=== PATIENT | female | born 1980 | race Caucasian/White ===

== ENCOUNTER 2017-01-17 17:46 | Emergency (ER) | payer OTHER ==
[~2017-01-17] VITALS: Ht 160 cm; Wt 54.5 kg
[2017-01-17 17:53] VITALS: TEMP 36.5; Ht 160 cm; Wt 54.5 kg
[2017-01-17] MEDS ORDERED: METOCLOPRAMIDE HCL INJ 5 MG/ML 2 ML VIAL IV STA (18:45)
[2017-01-17] MEDS ORDERED: LACTULOSE SYRUP 20 GM/30 ML UDC PO STA (18:45)
[2017-01-17] MEDS ORDERED: MILK AND MOLASSES ENEMA PR STA (18:45)
--- NOTE | 2017-01-17 19:08 | EMERGENCY ROOM VISIT NOTE ---
History Report prepared by Lorrieibbonita: Micah Lauren Under the Supervision of: Dr. Glen Baum M.D. First contact with patient: 18:40 Chief Complaint: RECTAL PAIN Stated Complaint: PAIN, CONSTIPATED Nursing Triage Summary: pt reports constipation with no BM X 1wk, pt reprots started with rectal pain this AM has take a suppostiory with no help History of Present Illness The patient is a 36 year old white female with a past medical history of endometriosis, laparoscopy who presents to the ED with a cc of constant constipation beginning 3-7 days ago. Positive passing gas, abdominal cramping, rectal pain. Negative prior similar experience. The patient states that she was taking Magnesium at 1500 and reports that she experienced nausea and vomiting. Source of History: patient Onset: 3-7 days ago Position: other (global) Symptom Intensity: 11/24 Quality: other (global) Timing: constant Associated Symptoms: + nausea, + vomiting, + abdominal pain Review of Systems See HPI for pertinent positives and negatives. A total of ten systems were reviewed and were otherwise negative. Past Medical & Surgical Medical Problems: (1) Endometriosis Family History Patient reports no known family medical history. Social History Smoking Status: Never Smoker Occupation Status: employed Current/Historical Medications Scheduled Calcium Carbonate (Calcium), 1 TAB PO DAILY Medroxyprogesterone Acetate (C (Depo-Provera Contraceptiv), 150 MG IM UD Allergies Coded Allergies: Prochlorperazine (Verified Allergy, Severe, Seizure, 01/17/17) Tramadol (Verified Allergy, Severe, Hallucinations, 01/17/17) Physical Exam Vital Signs Date Time Temp Pulse Resp B/P (MAP) Pulse Ox O2 Delivery O2 Flow Rate FiO2 01/17/17 20:15 81 18 98/61 95 Room Air 01/17/17 19:17 74 18 128/73 98 Room Air 01/17/17 17:53 36.5 115 20 101/59 98 Room Air Physical Exam GENERAL: Awake, alert, well-appearing, NAD HENT: Normocephalic, atraumatic. EYES: Normal conjunctiva. Sclera non-icteric. NECK: Supple. No nuchal rigidity. FROM. RESPIRATORY: CTAB, no rhonchi, wheezing, crackles CARDIAC: RRR, no MRG ABDOMEN: Soft, ND, BS+, mild diffuse abdominal pain MSK: No chest wall TTP, no LE edema NEURO: GCS 15, CN 2-12 intact, moves all 4s on command SKIN: No rash or jaundice noted. Medical Decision & Procedures ER Provider Diagnostic Interpretation: X-ray: Per my interpretation, radiologist review. PA CHEST WITH ABDOMINAL SERIES CLINICAL HISTORY: Generalized abdominal pain. FINDINGS: A PA chest radiograph is obtained. No prior studies are available for comparison at the time of dictation. The examination is degraded by patient rotation. The cardiomediastinal silhouette is unremarkable. The lungs and pleural spaces are clear. No pneumothorax is seen. The bony thorax is grossly intact. Supine and decubitus abdominal radiographs are correlated with fluoroscopic upper GI series dated 04/04/2015. There is a nonobstructed abdominal bowel gas pattern. No evidence of intraperitoneal free air is seen on the decubitus view. There are no abnormal abdominal calcifications. Phleboliths are seen in the hemipelvis. The lumbosacral spine and bony pelvis appear intact. IMPRESSION: 1. No active disease in the chest. 2. Nonobstructed abdominal bowel gas pattern. Electronically signed by: Silviano Figueroa M.D. 01/17/2017 7:38 PM Dictated Date/Time: 01/17/2017 7:37 PM Laboratory Results 01/17/17 19:02 Red Blood Count 4.19, Mean Corpuscular Volume 90.5, Mean Corpuscular Hemoglobin 30.5, Mean Corpuscular Hemoglobin Concent 33.8, Mean Platelet Volume 9.8, Neutrophils (%) (Auto) 81.8, Lymphocytes (%) (Auto) 13.8, Monocytes (%) (Auto) 4.0, Eosinophils (%) (Auto) 0.0, Basophils (%) (Auto) 0.2, Neutrophils # (Auto) 8.93, Lymphocytes # (Auto) 1.51, Monocytes # (Auto) 0.44, Eosinophils # (Auto) 0.00, Basophils # (Auto) 0.02 01/17/17 19:02 Test 01/17/17 19:02 White Blood Count 10.92 K/uL (4.8-10.8) Red Blood Count 4.19 M/uL (4.2-5.4) Hemoglobin 12.8 g/dL (12.0-16.0) Hematocrit 37.9 % (37-47) Mean Corpuscular Volume 90.5 fL (80-100) Mean Corpuscular Hemoglobin 30.5 pg (25-34) Mean Corpuscular Hemoglobin Concent 33.8 g/dl (32-36) Platelet Count 257 K/uL (130-400) Mean Platelet Volume 9.8 fL (7.4-10.4) Neutrophils (%) (Auto) 81.8 % Lymphocytes (%) (Auto) 13.8 % Monocytes (%) (Auto) 4.0 % Eosinophils (%) (Auto) 0.0 % Basophils (%) (Auto) 0.2 % Neutrophils # (Auto) 8.93 K/uL (1.4-6.5) Lymphocytes # (Auto) 1.51 K/uL (1.2-3.4) Monocytes # (Auto) 0.44 K/uL (0.11-0.59) Eosinophils # (Auto) 0.00 K/uL (0-0.5) Basophils # (Auto) 0.02 K/uL (0-0.2) RDW Standard Deviation 39.6 fL (36.4-46.3) RDW Coefficient of Variation 12.0 % (11.5-14.5) Immature Granulocyte % (Auto) 0.2 % Immature Granulocyte # (Auto) 0.02 K/uL (0.00-0.02) Anion Gap 11.0 mmol/L (3-11) Est Creatinine Clear Calc Drug Dose 96.0 ml/min Estimated GFR () 131.1 Estimated GFR (Non- 113.1 BUN/Creatinine Ratio 17.8 (10-20) Calcium Level 9.2 mg/dl (8.5-10.1) Total Bilirubin 0.4 mg/dl (0.2-1) Direct Bilirubin 0.2 mg/dl (0-0.2) Aspartate Amino Transf (AST/SGOT) 17 U/L (15-37) Alanine Aminotransferase (ALT/SGPT) 8 U/L (12-78) Alkaline Phosphatase 70 U/L (45-117) Total Protein 7.7 gm/dl (6.4-8.2) Albumin 4.6 gm/dl (3.4-5.0) Lipase 206 U/L (73-393) Laboratory results reviewed by me Medications Administered Medications (Trade) Dose Ordered Sig/Francia Route Start Time Stop Time Status Last Admin Dose Admin Metoclopramide HCl (Reglan Inj) 10 mg NOW STAT IV 01/17/17 18:45 01/17/17 18:47 DC 01/17/17 19:10 10 MG Lactulose (Chronulac Syrup) 30 gm NOW STAT PO 01/17/17 18:45 01/17/17 18:47 DC 01/17/17 19:10 30 GM Miscellaneous Medication (Milk And Molasses Enema) 1 ea ONE STAT [place] 01/17/17 18:45 01/17/17 18:47 DC 01/17/17 18:45 1 EA ED Course 1855: The patient was evaluated in room C11B. A complete history and physical exam was performed. 2034: I reevaluated the patient. Discussed results and discharge instructions: She verbalized understanding and agreement. The patient is ready for discharge. Medical Decision Triage Nursing notes reviewed. The patient is a 36 year old white female with a past medical history of endometriosis, laparoscopy who presents to the ED with a cc of constant constipation beginning 3-7 days ago. The patient's presentation and history were concerning for etiologies such as appendicitis, diverticulitis, PUD, biliary pathology, UTI, pancreatitis, obstruction, mesenteric ischemia, aortic pathology, infections, inflammatory bowel disease, renal colic, as well as others were entertained. Patient was seen and evaluated the bedside. Patient was complaining of some abdominal and rectal pain been ongoing today. Patient states she is unsure as to whether not she's had a bowel movement in the last 3-7 days. Patient states she did pass gas this morning. Patient denies any recent trauma or procedures to the area. Patient denies any bleeding. On exam patient appears mildly uncomfortable does have some mild diffuse abdominal discomfort. Patient did have blood work completed along with a plain film. Patient's blood work fairly unremarkable. White blood cell count within normal limits. Patient normal LFTs and lipase. Patient's plain films showed a nonobstructive bowel gas pattern. Patient did receive lactulose, Reglan, and an enema. Patient did have a large bowel movement and felt much improved. Patient was given instructions on at home remedies. Patient was told to increase leafy greens heart rate her diet. Patient was also instructed to take a docusate/senna. Patient told she had constipation she should consider an osmotic laxative like mag citrate and lactulose and/or a suppository. Patient was agreeable to plan of care. Patient is soft abdomen. Patient was able tolerate by mouth. Patient was deemed suitable for outpatient follow-up and discharge. Patient was given strict follow-up, discharge, and return precautions. All questions were answered. Patient was deemed suitable for outpatient follow-up at this time. Patient agreed with the plan of care and was safely discharged home. Medication Reconcilliation Current Medication List: was personally reviewed by me Blood Pressure Screening Patient's blood pressure: Normal blood pressure Impression Primary Impression: Constipation Scribe Attestation The scribe's documentation has been prepared under my direction and personally reviewed by me in its entirety. I confirm that the note above accurately reflects all work, treatment, procedures, and medical decision making performed by me. Departure Information Dispostion Home / Self-Care Referrals No Doctor, Assigned (PCP) Patient Instructions Diet High Fiber Dc, ED Constipation, My [facility] Additional Instructions Please return to the emergency department if you have worsening or recurrent symptoms not amenable to at-home treatment. Please call for a follow-up appointment with her primary care physician. Please take your medications as prescribed. If you have other concerns and/or complaints please feel free to also call your primary care physician's office or return the ED for further evaluation, management, and treatment. Increase your fluid hydration. Avoid things like alcohol and caffeinated beverages. Also increase the leafy greens and fiber in her diet. Please consider taking a docusate and senna. If you have constipation even after employing these remedies consider taking a osmotic laxative like lactulose for magnesium citrate and/or consider a suppository. You may take 600 mg Ibuprofen every 6 hours as needed for pain with food for no more than 2 consecutive days. You may take tylenol 1000 mg every 6 hours as needed for pain. You may take motrin and tylenol separately or at the same time. Take your medications as prescribed. You have been examined and treated today on an emergency basis only. This is not a substitute for, or an effort to provide, complete comprehensive medical care. It is impossible to recognize and treat all injuries or illnesses in a single emergency department visit. It is therefore important that you follow up closely with [facility], your PCP, and/or your specialist(s). Call as soon as possible for an appointment. Thank you for your time and consideration. I look forward to speaking with you again soon. Please don't hesitate to call us if you have any questions. Problem Qualifiers Primary Impression: Constipation Constipation type: unspecified constipation type Qualified Codes: K59.00 - Constipation, unspecified
[2017-01-17 19:29] LABS: BASO % 0.2 %; BASO ABS # 0.02 K/uL (0-0.2); COMPLETE YES; HEMATOCRIT 37.9 % (37-47); IG% 0.2 %; LYMPH % 13.8 %; LYMPH ABS # 1.51 K/uL (1.2-3.4); MEAN CELL VOLUME 90.5 fL (80-100); MEAN CORPUSCULAR HEMOGLOBIN 30.5 pg (25-34); MEAN CORPUSCULAR HGB CONC 33.8 g/dl (32-36); MEAN PLATELET VOLUME 9.8 fL (7.4-10.4); NEUT % 81.8 %; PLATELET COUNT 257 K/uL (130-400); RED BLOOD COUNT 4.19 M/uL (4.2-5.4); WHITE BLOOD COUNT 10.92 K/uL (4.8-10.8)
[2017-01-17] MEDS ORDERED: CALC500C73 PO (19:29)
[2017-01-17] MEDS ORDERED: MEDR150I IM (19:32)
[2017-01-17 19:36] LABS: BUN/CREATININE RATIO 17.8 (10-20); CALCIUM 9.2 mg/dl (8.5-10.1); CREATININE 0.67 mg/dl (0.60-1.20)
--- NOTE | 2017-01-17 19:39 | DIAGNOSTIC IMAGING REPORT ---
PA CHEST WITH ABDOMINAL SERIES CLINICAL HISTORY: Generalized abdominal pain. FINDINGS: A PA chest radiograph is obtained. No prior studies are available for comparison at the time of dictation. The examination is degraded by patient rotation. The cardiomediastinal silhouette is unremarkable. The lungs and pleural spaces are clear. No pneumothorax is seen. The bony thorax is grossly intact. Supine and decubitus abdominal radiographs are correlated with fluoroscopic upper GI series dated 04/04/2015. There is a nonobstructed abdominal bowel gas pattern. No evidence of intraperitoneal free air is seen on the decubitus view. There are no abnormal abdominal calcifications. Phleboliths are seen in the hemipelvis. The lumbosacral spine and bony pelvis appear intact. IMPRESSION: 1. No active disease in the chest. 2. Nonobstructed abdominal bowel gas pattern. Electronically signed by: Silviano Figueroa M.D. 01/17/2017 7:38 PM Dictated Date/Time: 01/17/2017 7:37 PM
[2017-01-17 21:04] VITALS: BP 95/51; PULSE 88; O2SAT 97
== END 2017-01-17 21:05 | disposition home or self-care (01) ==
LOC: C.EDB 17:48 → C.EDC 21:05
DX: K59.00 Constipation, unspecified (principal); Z79.3 Long term (current) use of hormonal contraceptives; Z79.899 Other long term (current) drug therapy; N80.9 Endometriosis, unspecified